=== PATIENT | male | born 1995 | race Caucasian/White ===

== ENCOUNTER 2017-02-26 18:37 | Emergency (ER) | payer BC ==
--- NOTE | 2017-02-26 22:04 | UC ---
FLU HPI - HPI Summary HPI Summary: SEVERAL HOURS SUDDEN ONSET OF FEVER CONGESTION, BODY ACHES, MILD HEADACHE, SORE THROAT. NO ABDOMINAL PAIN. NO PHOTOPHOBIA OR NECK STIFFNESS. - History of Current Complaint Chief Complaint: UCRespiratory Stated Complaint: SORE THROAT, AND FEVER Time Seen by Provider: 02/26/17 21:00 Hx Obtained From: Patient Onset/Duration: Sudden Onset, Lasting Hours, Still Present Severity Currently: Moderate Severity Initially: Moderate Associated Signs & Symptoms: Positive: Fever, F/C, Myalgia, Sore Throat, Nasal Congestion, Headache Related Hx: Possible Flu/Infectious Exposure - Allergy/Home Medications Allergies/Adverse Reactions: Allergies Allergy/AdvReac Type Severity Reaction Status Date / Time No Known Allergies Allergy Verified 02/26/17 19:04 Home Medications: Home Medications Ibuprofen TAB* [Advil TAB*] 02/26/17 [History] PMH/Surg Hx/FS Hx/Imm Hx Previously Healthy: Yes - Surgical History Surgical History: Yes Surgery Procedure, Year, and Place: [place] [facility] - Family History Known Family History: Positive: None Negative: Cardiac Disease, Hypertension, Diabetes - Social History Occupation: Student Lives: With Family Alcohol Use: None Substance Use Type: None Smoking Status (MU): Never Smoked Tobacco - Immunization History Vaccination Up to Date: Yes Review of Systems Constitutional: Fever, Fatigue Skin: Negative Eyes: Negative ENT: Sore Throat, Nasal Discharge Respiratory: Negative Cardiovascular: Negative Gastrointestinal: Negative Genitourinary: Negative Motor: Negative Musculoskeletal: Myalgia Neurological: Headache - RESOLVED Psychological: Negative All Other Systems Reviewed And Are Negative: Yes Physical Exam Triage Information Reviewed: Yes Appearance: No Pain Distress, Well-Nourished, Ill-Appearing - MILDLY Vital Signs: Initial Vital Signs Temp 99.6 F 02/26/17 18:58 Pulse 74 02/26/17 18:58 Resp 18 02/26/17 18:58 BP 130/65 02/26/17 18:58 Pulse Ox 100 02/26/17 18:58 Vital Signs Reviewed: Yes Eye Exam: Normal ENT: Positive: Hearing grossly normal, Pharyngeal erythema, TMs normal Dental Exam: Normal Neck exam: Normal Neck: Positive: Supple, Nontender, No Lymphadenopathy. Negative: Nuchal Rigidity, Tenderness @ Respiratory Exam: Normal Respiratory: Positive: Chest non-tender, Lungs clear, Normal breath sounds, No respiratory distress, No accessory muscle use Cardiovascular Exam: Normal Cardiovascular: Positive: RRR, No Murmur, Pulses Normal Abdominal Exam: Normal Musculoskeletal Exam: Normal Musculoskeletal: Positive: Strength Intact Neurological Exam: Normal Psychological Exam: Normal Skin Exam: Normal Flu Course/Dx - Differential Dx/Diagnosis Differential Diagnosis/HQI/PQRI: Influenza, RSV, Upper Respiratory Infection Provider Diagnoses: VIRAL SYNDROME, UPPER RESPIRATOY INFECTION Discharge - Discharge Plan Condition: Stable Disposition: HOME Patient Education Materials: Viral Syndrome (ED) Forms: *School Release Referrals: [facility] [Outside] Jorje Angeles DO [Primary Care Provider] - Additional Instructions: STREP AND RAPID FLU A & B HAVE ALL TESTED NEGATIVE. PLEASE REST, DRINK PLENTY OF FLUIDS. MANAGE FEVER & DISCOMFORT WITH TYLENOL AND IBUPROFEN. IF SYMPTOMS PERSIST SEEK EVALUATION AT [facility]. IF SYMPTOMS WORSEN OR IF NEW SYMPTOMS DEVELOP SEEK EVALUATION AT THE EMERGENCY DEPT.
[2017-02-26 22:09] VITALS: BP 109/58
== END 2017-02-26 22:10 | disposition home or self-care (01) ==
LOC: UCEAST 18:37
DX: J06.9 Acute upper respiratory infection, unspecified (principal); B34.9 Viral infection, unspecified
CPT/HCPCS: 87502; 87651; 99212; G0463

== ENCOUNTER 2018-01-05 08:43 | Emergency (ER) | payer BC, OTHER ==
[2018-01-05 08:57] VITALS: BP 104/52
--- NOTE | 2018-01-05 09:26 | UC ---
FLU HPI - HPI Summary HPI Summary: 22 y/o male presents to the urgent care c/o sore throat , dry cough, fever, chills, and WANG for the past 3 days. Pt reports this morning he had an episode of vomiting. He has decrease appetite. He has taken Delsym and advil to alleviate symptoms. Pain is 2/10. Pt denies SOB, chest pain, abdominal pain, diarrhea. Pt is UTD w/ all vaccines for his age. - History of Current Complaint Chief Complaint: UCRespiratory Stated Complaint: VOMITING COUGH Time Seen by Provider: 01/05/18 09:15 Hx Obtained From: Patient Onset/Duration: Gradual Onset, Lasting Days - 3 days, Still Present, Worse Since - this morning Severity Currently: Mild Severity Initially: Mild Pain Intensity: 2 Pain Scale Used: 0-10 Numeric Associated Signs & Symptoms: Positive: Fever, Myalgia, Cough, Sore Throat, Nasal Congestion, Headache, Vomiting - Risk Factors Influenza Risk Factors: Negative - Allergy/Home Medications Allergies/Adverse Reactions: Allergies Allergy/AdvReac Type Severity Reaction Status Date / Time No Known Allergies Allergy Verified 01/05/18 08:52 PMH/Surg Hx/FS Hx/Imm Hx Previously Healthy: Yes Respiratory History: Asthma - Surgical History Surgical History: Yes Surgery Procedure, Year, and Place: [place] [facility] - Family History Known Family History: Positive: None, Hypertension Negative: Cardiac Disease, Diabetes - Social History Occupation: Student Lives: With Family Alcohol Use: None Substance Use Type: None Smoking Status (MU): Never Smoked Tobacco - Immunization History Vaccination Up to Date: Yes Review of Systems Constitutional: Fever, Chills, Fatigue, Other - body aches Skin: Negative Eyes: Negative ENT: Sore Throat, Nasal Discharge, Sinus Congestion Respiratory: Cough Cardiovascular: Negative Gastrointestinal: Vomiting, Nausea Genitourinary: Negative Motor: Negative Neurovascular: Negative Musculoskeletal: Negative Neurological: Headache Psychological: Negative Is Patient Immunocompromised?: No All Other Systems Reviewed And Are Negative: Yes Physical Exam Triage Information Reviewed: Yes Vital Signs: Initial Vital Signs Temp 98 F 01/05/18 08:55 Pulse 103 01/05/18 08:55 Resp 20 01/05/18 08:55 BP 104/52 01/05/18 08:55 Pulse Ox 97 01/05/18 08:55 - Additional Comments VITAL SIGNS: Reviewed. GENERAL: Patient is a well developed and nourished male who is sitting comfortable in the examining table. Patient is not in any acute respiratory distress. HEAD AND FACE: No signs of trauma. No ecchymosis, hematomas or skull depressions. No sinus tenderness. edematous erythematous nasal mucosa with yellowish discharge, EYES: PERRLA, EOMI x 2, No injected conjunctiva, clear watery eyes, no nystagmus. No photophobia. EARS: Hearing grossly intact. Ear canals and tympanic membranes are within normal limits. MOUTH: Positive pharynx with erythema, no exudates,no palatal petechiae. no B/L tonsillar enlargement Uvula in midline. NECK: Supple, trachea is midline, Positive anterior cervical lymphadenopathy, no JVD, no carotid bruit, no c-spine tenderness, neck with full ROM. No meningeal signs, no Kernig's or brudzinskis signs. CHEST: Symmetric, no tenderness at palpation LUNGS: Clear to auscultation bilaterally. No wheezing or crackles. CVS: Regular rate and rhythm, S1 and S2 present, no murmurs or gallops appreciated. ABDOMEN: Soft, non-tender. No signs of distention. No rebound no guarding, and no masses palpated. Bowel sounds are normal. EXTREMITIES: FROM in all major joints, no edema, no cyanosis or clubbing. NEURO: Alert and oriented x 3. No acute neurological deficits. Speech is normal and follows commands. SKIN: Dry and warm Flu Course/Dx - Course Course Of Treatment: 22 y/o male presents to the urgent care c/o sore throat , dry cough, fever, chills, and WANG for the past 3 days. Pt reports this morning he had an episode of vomiting. He has decrease appetite. He has taken Delsym and advil to alleviate symptoms. Pain is 2/10. Pt denies SOB, chest pain, abdominal pain, diarrhea. Pt is UTD w/ all vaccines for his age. Hx obtained. Pt w/ URI on examiantion. Pt Still w/ nausea. Pt given Zofran PO by nurse. Pt toleraed well medication and felt better. Rapid strep ordered, result: negative.Influenza A&B ordered: result: Influenza ngative.Pt Rx Zofran PO to alleviates symptoms. Advised to continue w/ Delsym for his cough and advised to rest, increase fluid intake, eat well and avoid strenuous exercise. If symptoms do not improve or worsen advised to return to the urgent care or f/u with her PCP for further evaluation and treatment. Pt understood and agreed with plan of care. - Differential Dx/Diagnosis Differential Diagnosis/HQI/PQRI: Bronchitis, Influenza, Pneumonia, Upper Respiratory Infection, Other - gatroenteritis, vomiting Provider Diagnoses: 1-Upper respiratory infection. 2-Nausea and vomiting Discharge - Discharge Plan Condition: Stable Disposition: HOME Prescriptions: Ondansetron ODT TAB* [Zofran 4 MG Odt TAB*] 8 mg PO Q6H PRN #12 tab.odt PRN Reason: Vomiting Patient Education Materials: Upper Respiratory Infection (ED), Acute Nausea and Vomiting (ED) Forms: *School Release Referrals: Jorje Angeles DO [Primary Care Provider] - 3 Days Additional Instructions: 1-Please continue taking Delsym to alleviate cough. 2- Take Zofran PO as instructed only if you continue w/ Nausea snd vomiting. Increase fluid intake w/ Gatorade or Pedialyte , eat well, rest and avoid strenuous exercise 3-If symptoms do not improve or worsen please return to the urgent care or f/u with your PCP for further evaluation and treatment.
[2018-01-05] MEDS ORDERED: Ondansetron ODT TAB* 4 MG PO ONE (09:30)
== END 2018-01-05 10:20 | disposition home or self-care (01) ==
LOC: UCEAST 08:43
DX: J06.9 Acute upper respiratory infection, unspecified (principal); R11.2 Nausea with vomiting, unspecified; J45.909 Unspecified asthma, uncomplicated
CPT/HCPCS: 87502; 87651; 99212; A9270-GY; G0463

== ENCOUNTER 2018-01-30 09:07 | Emergency (ER) | payer OTHER ==
[2018-01-30 09:21] VITALS: BP 104/73
[2018-01-30] MEDS ORDERED: Ondansetron ODT TAB* 4 MG PO ONE (09:45)
--- NOTE | 2018-01-30 10:19 | UC ---
Abdominal Pain Male HPI - HPI Summary HPI Summary: Pt presents with nausea and vomiting this morning. He tells me that last night he went out drinking with his friends. He drank much more than usual - at least 10 alcoholic drinks. Mixed beer and hard liquor. He estimates that his last drink was around 0200. He slept for a few hours. Woke up around 0730 and had a headache, nausea, and vomited once. Tried toast and water, but vomited. He then came to . He says he never drinks that much, but was having a good time and admits that he "got out of hand". Winger safe in his environment and was around known friends - does not want drug testing today. Denies fever, chills, SOB, chest pain, abdominal pain. - History of Current Complaint Chief Complaint: UCGI Stated Complaint: VOMITING Time Seen by Provider: 01/30/18 10:00 Hx Obtained From: Patient Onset/Duration: Sudden Onset Pain Intensity: 0 - Allergies/Home Medications Allergies/Adverse Reactions: Allergies Allergy/AdvReac Type Severity Reaction Status Date / Time No Known Allergies Allergy Verified 01/30/18 09:21 Home Medications: Home Medications Azithromyxin DOLORES (NF) [Z-Dolores (Zithromax) 250 mg tabs #6] 1 tab PO DAILY [History Confirmed 01/30/18] PMH/Surg Hx/FS Hx/Imm Hx Previously Healthy: Yes - Surgical History Surgical History: Yes Surgery Procedure, Year, and Place: [place] [facility] - Family History Known Family History: Positive: None, Hypertension Negative: Cardiac Disease, Diabetes - Social History Occupation: Student Lives: Dormitory/Roommates Alcohol Use: Weekly Alcohol Amount: 3xweek Substance Use Type: None Smoking Status (MU): Never Smoked Tobacco - Immunization History Most Recent Tetanus Shot: UTD Vaccination Up to Date: Yes Review of Systems Constitutional: Negative Skin: Negative Respiratory: Negative Cardiovascular: Negative Gastrointestinal: Vomiting, Nausea Genitourinary: Negative Musculoskeletal: Negative Neurological: Headache Psychological: Negative All Other Systems Reviewed And Are Negative: Yes Physical Exam - Summary Physical Exam Summary: GENERAL: Mildly ill appearing. NAD. SKIN: No rashes, sores, ulcers, masses, lesions. NECK: Supple. Nontender. No lymphadenopathy. CHEST: CTAB. No r/r/w. No accessory muscle use. Breathing comfortably and in no distress. CV: RRR. Without m/r/g. Pulses intact. Brisk cap refill. ABDOMEN: Soft. NTTP. No distention or guarding. No organomegaly. No CVA tenderness. Bowel sounds present x4. NEURO: Alert. CN II-XII grossly intact. PSYCH: Age appropriate behavior. Have you ever felt you needed to Cut down on your drinking? - Yes Have people Annoyed you by criticizing your drinking? - No Have you ever felt Guilty about drinking? - Just last night Have you ever felt you needed a drink first thing in the morning (Eye-door opener) to steady your nerves or to get rid of a hangover? - No Triage Information Reviewed: Yes Vital Signs: Initial Vital Signs Temp 99.1 F 01/30/18 09:17 Pulse 102 01/30/18 09:17 Resp 20 01/30/18 09:17 BP 104/73 01/30/18 09:17 Pulse Ox 100 01/30/18 09:17 Abd Pain Male Course/Dx - Course Course Of Treatment: He was given 8mg of zofran and 1L of NS. Throughout his stay, pt tolerated po water and multiple bags of crackers. Reported feeling much better after fluids. D/c home with instructions to go to ED if symptoms worsen. - Differential Dx/Clinical Impression Provider Diagnoses: Dehydration. Vomiting. Alcohol hangover Discharge - Sign-Out/Discharge Documenting (check all that apply): Discharge - Discharge Plan Condition: Stable Disposition: HOME Patient Education Materials: Acute Nausea and Vomiting (ED) Referrals: No Primary Care Phys,NOPCP [Primary Care Provider] - Additional Instructions: If you develop a fever, shortness of breath, chest pain, new or worsening symptoms - please call your PCP or go to the ED. - Billing Disposition and Condition Condition: STABLE Disposition: HOME
[2018-01-30] MEDS ORDERED: NS 0.9% 1000 ML* 1,000 ML IV ONE (10:25)
== END 2018-01-30 11:36 | disposition home or self-care (01) ==
LOC: UCEAST 09:07
DX: E86.0 Dehydration (principal); R11.10 Vomiting, unspecified; F10.129 Alcohol abuse with intoxication, unspecified
CPT/HCPCS: 96360; 99212; A9270-GY; G0463